=== PATIENT | female | born 1990 | race Caucasian/White ===

== ENCOUNTER 2017-05-14 21:37 | Emergency (ER) | payer OTHER ==
[~2017-05-14] VITALS: Ht 162.6 cm; Wt 72.6 kg
[~2017-05-14 21:37] MED LIST: ALBUTEROL 0.5ML INH; AMOXICILLIN875 MG PO; ANTIVERT PO; BACITRACIN OINTMENT TOP; BENADRY PO; EFFEXOR75 M1 PO; FIORICET-COD 51 EACH PO; FLAGYL PO; HYDROCODON-ACE1 EAC7 PO; KEFLEX250 M2 PO; MOTRIN600 MG PO; NO MEDICATIONS; PEN-VEE K PO; PHENERGAN DM PO; PHENERGAN25 MG PO; PREDNISONE PO; PRENATAL1 TA1 PO; PROZAC PO; PROZAC40 MG PO; TYLENOL #3 PO; VOLTAREN75 MG PO; ZITHROMAX PO; ZOFRAN ODT4 MG PO
[2017-05-14] MEDS ORDERED: STOOL SOFTENER50 MG (21:48)
[2017-05-14] MEDS ORDERED: IRON18 MG (21:48)
== END 2017-05-14 22:13 | disposition home or self-care (01) ==
LOC: SED 21:37
DX: Z48.817 Encounter for surgical aftercare following surgery on the skin and subcutaneous tissue (principal); F17.210 Nicotine dependence, cigarettes, uncomplicated; Z79.899 Other long term (current) drug therapy
CPT/HCPCS: 99283